=== PATIENT | male | born 1995 ===

== ENCOUNTER 2017-05-25 14:56 | Emergency (ER) | payer SELFPAY ==
[~2017-05-25] VITALS: Ht 167.6 cm; Wt 74.7 kg
[~2017-05-25 14:56] MED LIST: CIPR1TAB10 PO
[2017-05-25 15:06] VITALS: TEMP 38.8; Ht 167.6 cm; Wt 74.7 kg
[2017-05-25] MEDS ORDERED: ACETAMINOPHEN 500 MG TAB PO STA (15:50)
[2017-05-25] MEDS ORDERED: KETOROLAC TROMETHAMINE 30 MG/ML VIAL IV STA (15:50)
[2017-05-25] MEDS ORDERED: SODIUM CHLORIDE 0.9% 1000ML 1,000 ML IV STA (15:50)
--- NOTE | 2017-05-25 15:56 | EMERGENCY ROOM VISIT NOTE ---
History Report prepared by Kyrie: Jt Spangler Under the Supervision of: Dr. Munir Castle M.D. First contact with patient: 15:40 Chief Complaint: FLU LIKE SX Stated Complaint: DIFFICULTY BREATHING, HEADACHE, DENTAL PAIN History of Present Illness The patient is a 22 year old male with a past medical history of bronchitis who presents to the ED with a cc of constant general body aches beginning last night. He rates his discomfort as a 7.5/10 in severity. The patient states that he developed a sore throat two days ago. He states that later his wisdom teeth began to ache. The patient states that he had his wisdom teeth capped a couple of years ago, but states that some broke off recently. He reports the next day he developed body aches and a fever. The patient states that he took Tylenol extra strength without any relief of symptoms. Positive fever, chest pain with cough, occasional alcohol use, passing gas. Negative flu shot, bowel movement since two days ago. Source of History: patient Onset: last night Position: other (diffuse) Symptom Intensity: 7.5/10 Quality: ache Timing: constant Modifying Factors (Relieving): tylenol Associated Symptoms: + fevers, + sorethroat, + cough, + chest pain Note: Positive wisdom teeth pain, occasional alcohol use, passing gas. Negative flu shot, bowel movement since two days ago. Review of Systems See HPI for pertinent positives and negatives. A total of ten systems were reviewed and were otherwise negative. Past Medical & Surgical Medical Problems: (1) Acute bronchitis (2) Chest pain (3) Dizziness (4) No active medical problems (5) No Known Active Medical Problems (6) No known allergies Family History Patient reports no known family medical history. Social History Smoking Status: Never Smoker Alcohol Use: occasionally Drug Use: none Marital Status: Housing Status: lives with family Occupation Status: employed Current/Historical Medications Scheduled Oseltamivir (Tamiflu), 75 MG PO BID Scheduled PRN Acetaminophen (Tylenol), 1,000 MG PO Q6H PRN for Pain or Fever Allergies Coded Allergies: No Known Allergies (Unverified , 03/04/16) Physical Exam Vital Signs Date Time Temp Pulse Resp B/P (MAP) Pulse Ox O2 Delivery O2 Flow Rate FiO2 05/25/17 18:09 79 18 118/69 98 05/25/17 16:35 102 05/25/17 16:23 103 22 130/83 93 Room Air 05/25/17 15:06 38.8 103 17 147/89 98 Room Air Physical Exam GENERAL: Awake, alert, well-appearing, NAD HENT: Normocephalic, atraumatic. Poor dentition. No evidence of dental abscess. No posterior tonsillar uvular swelling or deviation. EYES: Normal conjunctiva. Sclera non-icteric. NECK: Supple. No nuchal rigidity. FROM. RESPIRATORY: CTAB, no rhonchi, some scant wheezes throughout, crackles CARDIAC: RRR, no MRG ABDOMEN: Soft, NTND, BS+ MSK: No chest wall TTP, no LE edema NEURO: GCS 15, CN 2-12 intact, moves all 4s on command SKIN: No rash or jaundice noted. Medical Decision & Procedures ER Provider Diagnostic Interpretation: X-ray: Per my interpretation, radiologist review. CHEST ONE VIEW PORTABLE CLINICAL HISTORY: cough, fevers, chills COMPARISON STUDY: 07/22/2015 FINDINGS: The cardiac and mediastinal contours are normal. There is no evidence of focal pulmonary consolidation. There is no evidence of failure. No pleural effusions are visualized.[ IMPRESSION: No active disease in the chest. Electronically signed by: Clemente Alvarado M.D. 05/25/2017 4:01 PM Dictated Date/Time: 05/25/2017 4:01 PM Laboratory Results Test 05/25/17 16:10 Influenza Type A Antigen POS for Influ A (NEG) Influenza Type B Antigen Neg for Influ B (NEG) Laboratory results reviewed by me Medications Administered Medications (Trade) Dose Ordered Sig/Valeriy Route Start Time Stop Time Status Last Admin Dose Admin Ketorolac Tromethamine (Toradol Inj) 30 mg NOW STAT IV 05/25/17 15:50 05/25/17 15:52 DC 05/25/17 16:20 30 MG Acetaminophen (Tylenol Tab) 1,000 mg NOW STAT PO 05/25/17 15:50 05/25/17 15:52 DC 05/25/17 16:21 1,000 MG Sodium Chloride 1,000 ml @ 999 mls/hr Q1H1M STAT IV 05/25/17 15:50 05/25/17 16:50 DC 05/25/17 16:20 999 MLS/HR Oseltamivir Phosphate (Tamiflu Cap) 75 mg BID PO 05/25/17 21:00 05/30/17 20:59 05/25/17 17:41 75 MG Tramadol HCl (Ultram Tab) 50 mg NOW STAT PO 05/25/17 17:04 05/25/17 17:05 DC 05/25/17 17:41 50 MG ECG Per My Interpretation Indication: chest pain Rate (beats per minute): 98 Rhythm: normal sinus Findings: other ( Normal axis normal intervals No STS changes or TWI) ED Course 1548: The patient was evaluated in room B09. A complete history and physical exam was performed. 1657: I reevaluated the patient and he is resting comfortably. 1738: I reevaluated the patient. Discussed results and discharge instructions: He verbalized understanding and agreement. The patient is ready for discharge. Medical Decision Prior records/ancillary studies reviewed. Triage Nursing notes reviewed. The patient is a 22 year old race male with a past medical history of bronchitis who presents to the ED with a cc of constant general body aches beginning last night. Differential diagnosis: Etiologies such as viral syndrome, otitis, pharyngitis, pneumonia, influenza, meningitis, urinary tract infection, sepsis, bacteremia, as well as others were entertained. Patient was seen and evaluated at the bedside. Patient was complaining of some overall body aches, fevers, chills and sore throat. Patient states he had not taken much in terms of medications for symptom control. Patient did complain of some mild chest discomfort with breathing. Patient's exam is consistent likely with a viral flulike illness. Patient did have a flu swab was given IV fluids as well as medications. An EKG was also obtained. Patient chest x-ray was clear. Upon reassessment patient was only feeling mildly improved. Patient was given first dose of Tamiflu. Given the patient's constellation of symptoms I believe that his chest discomfort and shortness of breath is most likely related to his flulike illness. Patient was given outpatient resources for his dental pain. Patient was deemed suitable for outpatient follow-up and treatment at this time. Patient was given strict follow-up, discharge, and return precautions. All questions were answered. Patient was deemed suitable for outpatient follow-up at this time. Patient agreed with the plan of care and was safely discharged home. Medication Reconcilliation Current Medication List: was personally reviewed by me Blood Pressure Screening Patient's blood pressure: Normal blood pressure Impression Primary Impression: Influenza B Scribe Attestation The scribe's documentation has been prepared under my direction and personally reviewed by me in its entirety. I confirm that the note above accurately reflects all work, treatment, procedures, and medical decision making performed by me. Departure Information Dispostion Home / Self-Care Prescriptions Oseltamivir (Tamiflu) 75 Mg Cap 75 MG PO BID for 7 Days, #14 CAP Prov: Munir Catsle M.D. 05/25/17 Referrals Fabio Osman M.D. (PCP) Patient Instructions Decay Tooth, Dehydration, ED Fever Control, ED Flu, My [facility], Sore Throats Self Care Additional Instructions Please return to the emergency department if you have worsening or recurrent symptoms not amenable to at-home treatment. Please call for a follow-up appointment with her primary care physician. Please take your medications as prescribed. If you have other concerns and/or complaints please feel free to also call your primary care physician's office or return the ED for further evaluation, management, and treatment. Continue adequate and liberal fluid hydration. You may take 600 mg Ibuprofen every 6 hours as needed for pain with food for no more than 2 consecutive days. You may take tylenol 1000 mg every 6 hours as needed for pain. You may take motrin and tylenol separately or at the same time. Take your medications as prescribed. You have been examined and treated today on an emergency basis only. This is not a substitute for, or an effort to provide, complete comprehensive medical care. It is impossible to recognize and treat all injuries or illnesses in a single emergency department visit. It is therefore important that you follow up closely with [facility], your PCP, and/or your specialist(s). Call as soon as possible for an appointment. Thank you for your time and consideration. I look forward to speaking with you again soon. Please don't hesitate to call us if you have any questions.
--- NOTE | 2017-05-25 16:03 | DIAGNOSTIC IMAGING REPORT ---
CHEST ONE VIEW PORTABLE CLINICAL HISTORY: cough, fevers, chills COMPARISON STUDY: 07/22/2015 FINDINGS: The cardiac and mediastinal contours are normal. There is no evidence of focal pulmonary consolidation. There is no evidence of failure. No pleural effusions are visualized.[ IMPRESSION: No active disease in the chest. Electronically signed by: Clemente Alvarado M.D. 05/25/2017 4:01 PM Dictated Date/Time: 05/25/2017 4:01 PM
[2017-05-25] MEDS ORDERED: ACET-1256 PO (16:33)
[2017-05-25 16:42] LABS: INFLUENZA B ANTIGEN Neg for Influ B (NEG)
[2017-05-25] MEDS ORDERED: OSEL75CA12 PO (16:53)
[2017-05-25] MEDS ORDERED: TRAMADOL HCL 50 MG TAB PO STA (17:04)
--- NOTE | 2017-05-25 17:22 | Pharmacy Progress Note ---
ED Pharmacist Progress Note Date of Service: May 25, 2017. Received call from outpatient pharmacy ([facility]) requesting clarification on duration of Tamiflu. Authorized dispensing as 7 day supply (as originally written). However, on further evaluation of patient chart, this is for * treatment* of influenza (higher daily dose, but shorter duration OK) Discussed dosing with Dr. Tin Wade changing to oseltamivir 75 mg po BID x5 days Called back [facility], spoke w pharmacist (Alvaro). Provided verbal to change prescription as above. Alvaro acknowledged understanding.
[2017-05-25] MEDS ORDERED: OSELTAMIVIR PHOSPHATE 75 MG CAP PO ONE (17:40)
[2017-05-25 18:09] VITALS: BP 118/69; PULSE 79; O2SAT 98
[2017-05-25] MEDS ORDERED: OSELTAMIVIR PHOSPHATE 75 MG CAP PO SCH (21:00)
== END 2017-05-25 18:10 | disposition home or self-care (01) ==
LOC: C.EDB 14:58
DX: J10.1 Influenza due to other identified influenza virus with other respiratory manifestations (principal)